=== PATIENT | male | born 1995 | race Caucasian/White ===

== ENCOUNTER 2017-08-15 13:39 | Emergency (ER) | payer MEDICAID ==
[~2017-08-15] VITALS: Ht 185.4 cm; Wt 175.0 kg
[~2017-08-15 13:39] MED LIST: PHEN10TA PO
[2017-08-15 13:53] VITALS: BP 159/80
[2017-08-15] MEDS ORDERED: bacitracin 15gm ointment TP ONE (14:35)
== END 2017-08-15 15:13 | disposition home or self-care (01) ==
LOC: ER 13:39
DX: T22.222A Burn of second degree of left elbow, initial encounter (principal); T22.211A Burn of second degree of right forearm, initial encounter; T31.0 Burns involving less than 10% of body surface; J45.909 Unspecified asthma, uncomplicated; Z59.0 Homelessness; Z88.0 Allergy status to penicillin; Z88.2 Allergy status to sulfonamides; Z88.8 Allergy status to other drugs, medicaments and biological substances
CPT/HCPCS: 16020; 99284; A6255

== ENCOUNTER 2017-11-07 14:38 | Emergency (ER) | payer OTHER, MEDICAID ==
[~2017-11-07] VITALS: Ht 185.4 cm; Wt 182.0 kg
[2017-11-07 14:42] VITALS: BP 158/110
== END 2017-11-07 16:35 | disposition home or self-care (01) ==
LOC: ER 14:39
DX: M54.5 Low back pain (principal); M54.2 Cervicalgia; M25.571 Pain in right ankle and joints of right foot; J45.909 Unspecified asthma, uncomplicated; Z88.0 Allergy status to penicillin; Z88.2 Allergy status to sulfonamides; Z88.8 Allergy status to other drugs, medicaments and biological substances; Z59.0 Homelessness; W01.0XXA Fall on same level from slipping, tripping and stumbling without subsequent striking against object, initial encounter; Y93.89 Activity, other specified; Y92.89 Other specified places as the place of occurrence of the external cause; Y99.8 Other external cause status
CPT/HCPCS: 72040; 72100; 73610; 99284

== ENCOUNTER 2017-11-25 13:26 | Outpatient (CLI) | payer MEDICAID ==
[~2017-11-25 13:26] MED LIST changes: +HYDR-3965 PO
== END 2017-11-25 14:05 | disposition home or self-care (01) ==
LOC: ORTHO 13:26
PROVIDERS: ATTEND Nurse Practitioner Family
DX: S93.491A Sprain of other ligament of right ankle, initial encounter (principal); Z59.0 Homelessness; Z88.0 Allergy status to penicillin; Z88.2 Allergy status to sulfonamides; F17.210 Nicotine dependence, cigarettes, uncomplicated; X58.XXXA Exposure to other specified factors, initial encounter; Y93.89 Activity, other specified; Y92.89 Other specified places as the place of occurrence of the external cause; Y99.8 Other external cause status
CPT/HCPCS: 99213

== ENCOUNTER 2017-12-23 14:35 | Outpatient (CLI) | payer MEDICAID ==
[~2017-12-23 14:35] MED LIST changes: -HYDR-3965 PO
== END 2017-12-23 15:26 | disposition home or self-care (01) ==
LOC: ORTHO 14:35
PROVIDERS: ATTEND Nurse Practitioner Family
DX: S93.491D Sprain of other ligament of right ankle, subsequent encounter (principal); F17.210 Nicotine dependence, cigarettes, uncomplicated; Z88.2 Allergy status to sulfonamides; Z88.0 Allergy status to penicillin; Z59.0 Homelessness; X58.XXXD Exposure to other specified factors, subsequent encounter
CPT/HCPCS: 73610; 99213

== ENCOUNTER 2018-01-13 14:19 | Outpatient (CLI) | payer MEDICAID | END 2018-01-13 14:43 | disposition home or self-care (01) | LOC: ORTHO 14:19 | PROVIDERS: ATTEND Nurse Practitioner Family | DX: S93.491D Sprain of other ligament of right ankle, subsequent encounter (principal); F17.210 Nicotine dependence, cigarettes, uncomplicated; Z88.0 Allergy status to penicillin; Z88.2 Allergy status to sulfonamides; Z88.8 Allergy status to other drugs, medicaments and biological substances; Z59.0 Homelessness; X58.XXXD Exposure to other specified factors, subsequent encounter | CPT/HCPCS: 99213 ==

== ENCOUNTER 2018-02-08 14:31 | Outpatient (CLI) | payer MEDICAID | END 2018-02-08 14:50 | disposition home or self-care (01) | LOC: ORTHO 14:31 | PROVIDERS: ATTEND Nurse Practitioner Family | DX: S93.419D Sprain of calcaneofibular ligament of unspecified ankle, subsequent encounter (principal); F17.210 Nicotine dependence, cigarettes, uncomplicated; Z88.0 Allergy status to penicillin; Z88.2 Allergy status to sulfonamides; Z88.8 Allergy status to other drugs, medicaments and biological substances; Z59.0 Homelessness; X58.XXXD Exposure to other specified factors, subsequent encounter | CPT/HCPCS: 99213 ==

== ENCOUNTER 2019-09-29 19:40 | Emergency (ER) | payer MEDICAID, OTHER ==
[~2019-09-29] VITALS: Ht 185.4 cm; Wt 136.4 kg
[2019-09-29] MEDS ORDERED: normal saline 1000ML IV soln IVB ONE (19:55)
[2019-09-29] MEDS ORDERED: acetaminophen 325mg tablet PO ONE (19:55)
[2019-09-29] MEDS ORDERED: ketorolac tromethamine 15mg/ml inj. IV ONE (20:00)
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
[2019-09-29] MEDS ORDERED: TAM75C PO (21:15)
[2019-09-29 21:38] VITALS: BP 121/73
== END 2019-09-29 21:39 | disposition home or self-care (01) ==
LOC: ER 19:41
DX: J11.1 Influenza due to unidentified influenza virus with other respiratory manifestations (principal); J45.909 Unspecified asthma, uncomplicated; T78.40XA Allergy, unspecified, initial encounter; Z72.89 Other problems related to lifestyle; Z59.0 Homelessness; Z79.899 Other long term (current) drug therapy
CPT/HCPCS: 87502; 87503; 96372; 99283; J1885; J7030

== ENCOUNTER 2019-10-06 22:29 | Emergency (ER) | payer OTHER ==
[~2019-10-06] VITALS: Ht 185.4 cm; Wt 136.4 kg
[2019-10-06 22:31] VITALS: BP 155/96
[2019-10-06] MEDS ORDERED: DOXYCYCLINE 100MG CAPSULE PO STA (23:06)
[2019-10-06] MEDS ORDERED: bacitracin 15gm ointment TP ONE (23:10)
[2019-10-06] MEDS ORDERED: ketorolac trometh inj. 60 MG/2 ML VIAL IM ONE (23:10)
[2019-10-06] MEDS ORDERED: ondansetron 4mg rapidly disintigrating tab PO ONE (23:10)
[2019-10-06] MEDS ORDERED: DOXY100C76 PO (23:16)
== END 2019-10-06 23:23 | disposition home or self-care (01) ==
LOC: ER 22:29
DX: L03.314 Cellulitis of groin (principal); J45.909 Unspecified asthma, uncomplicated; Z59.0 Homelessness; Z88.0 Allergy status to penicillin; Z88.2 Allergy status to sulfonamides; Z88.8 Allergy status to other drugs, medicaments and biological substances
CPT/HCPCS: 96372; 99284; J1885

== ENCOUNTER 2019-11-11 22:26 | Emergency (ER) | payer OTHER ==
[~2019-11-11] VITALS: Ht 185.4 cm; Wt 134.1 kg
--- NOTE | 2019-11-11 23:00 | NUR ---
No longer goes to [facility].
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
[2019-11-11] MEDS ORDERED: DOXY100C77 PO (23:29)
[2019-11-11 23:58] VITALS: BP 156/81
== END 2019-11-12 | disposition home or self-care (01) ==
LOC: ER 22:27
DX: L02.413 Cutaneous abscess of right upper limb (principal); F17.200 Nicotine dependence, unspecified, uncomplicated; Z72.89 Other problems related to lifestyle; Z59.0 Homelessness; Z88.0 Allergy status to penicillin; Z88.2 Allergy status to sulfonamides; Z88.8 Allergy status to other drugs, medicaments and biological substances; Z79.2 Long term (current) use of antibiotics
CPT/HCPCS: 99283

== ENCOUNTER 2020-06-14 20:34 | Emergency (ER) | payer OTHER, MEDICAID ==
[~2020-06-14] VITALS: Ht 185.4 cm; Wt 134.1 kg
[2020-06-14 20:40] VITALS: BP 166/93
== END 2020-06-14 21:25 | disposition home or self-care (01) ==
LOC: ER 20:35
DX: R09.81 Nasal congestion (principal); R07.89 Other chest pain; Z20.828 Contact with and (suspected) exposure to other viral communicable diseases; Z59.0 Homelessness
CPT/HCPCS: 36415; 87635; 99283

== ENCOUNTER 2020-06-19 18:19 | Emergency (ER) | payer MEDICAID, OTHER ==
[~2020-06-19] VITALS: Ht 185.4 cm; Wt 134.1 kg
== END 2020-06-19 19:07 | disposition home or self-care (01) ==
LOC: ER 18:21
DX: U07.1 COVID-19 (principal); R43.8 Other disturbances of smell and taste; R05 Cough; Z72.89 Other problems related to lifestyle; Z59.0 Homelessness; Z88.0 Allergy status to penicillin; Z88.2 Allergy status to sulfonamides; Z88.8 Allergy status to other drugs, medicaments and biological substances; Z79.899 Other long term (current) drug therapy
CPT/HCPCS: 87635; 99283; C9803

== ENCOUNTER 2020-12-30 22:06 | Emergency (ER) | payer OTHER, MEDICAID ==
[~2020-12-30] VITALS: Ht 188 cm; Wt 280.0 kg
--- NOTE | 2020-12-30 23:12 | NUR ---
Pt states that his physician told him that he is not allergic to any medications. Medications previously marked as allergies are medications that his mother is allergic to.
[2020-12-31 01:55] VITALS: BP 168/97
== END 2020-12-31 01:57 | disposition home or self-care (01) ==
LOC: ER 22:07
DX: S93.402A Sprain of unspecified ligament of left ankle, initial encounter (principal); J45.909 Unspecified asthma, uncomplicated; Z72.89 Other problems related to lifestyle; Z79.899 Other long term (current) drug therapy; X58.XXXA Exposure to other specified factors, initial encounter; Y93.89 Activity, other specified; Y92.89 Other specified places as the place of occurrence of the external cause; Y99.8 Other external cause status
CPT/HCPCS: 29540; 73610; 99283

== ENCOUNTER 2025-02-07 14:12 | Emergency (ER) | payer OTHER ==
[~2025-02-07] VITALS: Ht 185.4 cm; Wt 148.8 kg
[2025-02-07 14:18] VITALS: BP 153/93; PULSE 99; O2SAT 99
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
[2025-02-07] MEDS: ketorolac trometh 30MG/ML vial 30 MG/ML VIAL IM STA (17:55)
[2025-02-07 17:56] VITALS: RESP 16
[2025-02-07] MEDS: HYDROcodone/acetaminophen 5mg/325mg tablet PO STA (17:56)
[2025-02-07] MEDS ORDERED: MELO-102 PO (18:12)
[2025-02-07] MEDS ORDERED: HYDR-3965 PO (18:12)
[2025-02-07] MEDS ORDERED: METH-798 PO (18:12)
[2025-02-07 18:22] VITALS: TEMP 98.8
== END 2025-02-07 18:24 | disposition home or self-care (01) ==
LOC: ER 14:12
DX: M54.2 Cervicalgia (principal); M54.50 Low back pain, unspecified
CPT/HCPCS: 72040; 72070; 72100; 96372; 99284; J1885